=== PATIENT | female | born 1960 | race Caucasian/White ===

== ENCOUNTER 2016-12-06 12:25 | Emergency (ER) | payer OTHER ==
[~2016-12-06] VITALS: Ht 167.6 cm; Wt 49.4 kg
--- NOTE | ~2016-12-06 | CR133 ---
[facility] A Service of [facility] & [facility] RADIOLOGY TEXT RESULTS PATIENT: JACOB CARVALHO LOCATION: [facility] : 60 UNIT #: [id number] AGE: [address]: Mary Sorensen SEX: F ORDER DR: [id number] [facility]. [place], [place] [address] [id number] MR#: [id number] Acc #: [id number] NAME: JACOB CARVALHO : 1960 SEX: F STUDY DATE/TIME: UNIT: [facility]FT[facility] ROOM: STUDY DESCRIPTION: CR Forearm 2 View Rt Attending Physician: Mary Sorensen Pa-C Ordering Physician: Ed Doc Susan Dunne Primary Care Physician: Jane Montoya MEDICAL IMAGING REPORT This report is preliminary unless electronic signature is present EXAM Right forearm 12/06/2016 1336 hours HISTORY Patient stepped on a walnut and fell today landing on right hand. Fifth finger pain and forearm pain since fall. COMPARISON None. FINDINGS AP and lateral views of the radius and ulna demonstrate no acute fracture. IMPRESSION Negative right forearm. Dictated by... Desire Contreras M.D. THIS IS AN ELECTRONICALLY VERIFIED REPORT Desire Contreras M.D. at 12/07/2016 9:23 AM SAY/tiffanie TD: 12/06/2016 22:47 JOB #: [id number] MEDICAL IMAGING REPORT Page 1 of 1 COPY
--- NOTE | ~2016-12-06 | CR142 ---
[facility] A Service of [facility] RADIOLOGY TEXT RESULTS PATIENT: JACOB CARVALHO LOCATION: [place] : 60 UNIT #: [id number] AGE: [address]: Mary Sorensen SEX: F ORDER DR: [id number] [facility]. [place], [place] [address] [id number] P MR#: [id number] Acc #: [id number] NAME: JACOB CARVALHO : 1960 SEX: F STUDY DATE/TIME: 12/06/2016 13:35 UNIT: [place] ROOM: STUDY DESCRIPTION: CR Hand Min 3 Views Rt Attending Physician: Mary Sorensen Pa-C Ordering Physician: Ed Doctor [id number] [facility] Primary Care Physician: Primary Care Physician No MEDICAL IMAGING REPORT This report is preliminary unless electronic signature is present EXAM Right hand 3 views 12/06/2016 1335 hours HISTORY 56-year-old woman who stepped on a walnut and fell today landing on hand. Pain at fifth digit. COMPARISON None. FINDINGS AP, lateral and oblique views demonstrate overall normal bone density. There is an acute fracture through the proximal aspect of the proximal phalanx of the fifth finger obliquely oriented which extends to and perhaps into the fifth metacarpal phalangeal joint. This is best seen on the oblique view. There are changes of osteoarthritis at the radiocarpal joint, the first carpometacarpal joint and the DIP joints. IMPRESSION 1. There is an acute oblique minimally displaced fracture along the dorsal aspect of the proximal phalanx of the fifth finger proximally which extends to and could extend into the fifth metacarpal phalangeal joint. 2. Osteoarthritis. STAT * RESULT Dictated by... Desire Contreras M.D. THIS IS AN ELECTRONICALLY VERIFIED REPORT [facility] A Service of [facility] RADIOLOGY TEXT RESULTS PATIENT: JACOB CARVALHO LOCATION: [facility] : 60 UNIT #: [id number] AGE: [address]: Mary Sorensen SEX: F ORDER DR: Desire Contreras M.D. at 12/06/2016 2:34 PM SAY/bailey TD: 12/06/2016 14:03 JOB #: [id number] MEDICAL IMAGING REPORT Page 1 of 1 COPY
[~2016-12-06 12:25] MED LIST: NEURONTIN300 MG PO; VOLTAREN75 MG PO
== END 2016-12-06 14:43 | disposition home or self-care (01) ==
LOC: CED 12:25 → CFTX 12:25
DX: S62.616A Displaced fracture of proximal phalanx of right little finger, initial encounter for closed fracture (principal); F17.210 Nicotine dependence, cigarettes, uncomplicated; W01.0XXA Fall on same level from slipping, tripping and stumbling without subsequent striking against object, initial encounter
CPT/HCPCS: 29125; 73090; 73130; 99283

== ENCOUNTER 2016-12-13 08:42 | Emergency (ER) | payer OTHER ==
[~2016-12-13] VITALS: Ht 167.6 cm; Wt 49.9 kg
--- NOTE | ~2016-12-13 | CR127 ---
[facility] A Service of [facility] & [facility] RADIOLOGY TEXT RESULTS PATIENT: JACOB CARVALHO LOCATION: [facility] : 60 UNIT #: [id number] AGE: [address]: Kely Garcia APRN SEX: F ORDER DR: [id number] [facility] [address] [facility]. [place], [place] [address] [id number] E MR#: [id number] Acc #: [id number] NAME: JACOB CARVALHO : 1960 SEX: F STUDY DATE/TIME: 12/13/2016 9:12 UNIT: [facility] ROOM: STUDY DESCRIPTION: CR Foot Complete Min 3 View Rt Attending Physician: Kely Garcia A.P.R.N. Ordering Physician: Ed Sylvester Dunne M.D. Primary Care Physician: Jane Montoya MEDICAL IMAGING REPORT This report is preliminary unless electronic signature is present EXAM Right foot 12/13 HISTORY Foot pain and swelling after tripping over a rocking chair today FINDINGS Three views of the right foot were obtained. There is an oblique nondisplaced hairline fracture through the first proximal phalanx. This does appear to involve the proximal articular surface. There is some mild degenerative disease at the first MTP joint. The remainder of the foot is normal. IMPRESSION Nondisplaced oblique hairline fracture through the proximal phalanx of the great toe. This does appear to involve the proximal articular surface. Dictated by... Imer Alas Jr., M.D. THIS IS AN ELECTRONICALLY VERIFIED REPORT Imer Alas Jr., M.D. at 12/13/2016 4:42 PM RLK/to TD: 12/13/2016 15:31 JOB #: [id number] MEDICAL IMAGING REPORT Page 1 of 1 COPY
== END 2016-12-13 10:09 | disposition home or self-care (01) ==
LOC: CFTX 08:42 → CED 08:42 → CFTX 09:38
DX: S92.414A Nondisplaced fracture of proximal phalanx of right great toe, initial encounter for closed fracture (principal); F17.210 Nicotine dependence, cigarettes, uncomplicated; J44.9 Chronic obstructive pulmonary disease, unspecified; W22.8XXA Striking against or struck by other objects, initial encounter; Y92.009 Unspecified place in unspecified non-institutional (private) residence as the place of occurrence of the external cause
CPT/HCPCS: 29405; 73630; 99283